=== PATIENT | male | born 1975 | race Caucasian/White ===

== ENCOUNTER 2016-05-25 20:10 | Emergency (ER) | payer MEDICAID ==
[~2016-05-25] VITALS: Ht 175.3 cm; Wt 95.0 kg
[~2016-05-25 20:10] MED LIST: APR50 PO
[2016-05-25 20:59] VITALS: Ht 175.3 cm; Wt 95.0 kg
[2016-05-25] MEDS ORDERED: ACETAMINOPHEN 500 MG TAB PO STA (22:55)
[2016-05-25 23:11] LABS: URINE BLOOD (Dip) POC 3+ (NEGATIVE)
[2016-05-25] MEDS ORDERED: CIPR500T4 PO (23:27)
[2016-05-25] MEDS ORDERED: PHEN-537 PO (23:27)
--- NOTE | 2016-05-26 01:55 | ERD ---
ER Documentation Chief Complaint Date/Time DATE: 05/26/16 TIME: 01:55 Chief Complaint Burning with urination and blood for 1 day HPI This is a 40 year old male presenting to ER for dysuria and hematuria x 1 day. No frequent or urgent urination. No difficulty urinating. No penile discharge or itching. No new sexual partners. No testicular or scrotal pain. No back or abdominal pain. No nausea or vomiting. Patient has not checked his temperature at home. ROS All systems reviewed and are negative except as per history of present illness. Medications Home Meds Active Scripts Phenazopyridine Hcl* (Pyridium*) 100 Mg Tab, 100 MG PO TID Y for URINARY PAIN, # 8 TAB Prov:CLEO CHAVEZ NP 05/25/16 Ciprofloxacin Hcl* (Ciprofloxacin Hcl*) 500 Mg Tablet, 500 MG PO BID for 3 Days , TAB Prov:CLEO CHAVEZ NP 05/25/16 Hydralazine Hcl* (Hydralazine Hcl*) 50 Mg Tab, 50 MG PO Q6, #120 TAB Prov:CHAPITO FERNANDEZ 01/28/16 Allergies Allergies: Coded Allergies: No Known Allergy (Unverified , 01/27/16) PMhx/Soc Medical and Surgical Hx: pt denies Medical Hx, pt denies Surgical Hx History of Surgery: No Anesthesia Reaction: No Hx Neurological Disorder: No Hx Respiratory Disorders: No Hx Cardiac Disorders: No Hx Psychiatric Problems: No Hx Miscellaneous Medical Probl: No Hx Alcohol Use: No Hx Substance Use: No Hx Tobacco Use: No Smoking Status: Never smoker Physical Exam Vitals Vital Signs Date Time Temp Pulse Resp B/P Pulse Ox O2 Delivery O2 Flow Rate FiO2 05/25/16 20:59 101.7 121 20 135/73 96 Physical Exam Const: no acute distress, alert Head: Atraumatic Eyes: Normal Conjunctiva ENT: Normal External Ears, Nose and Mouth. Neck: Full range of motion..~ No meningismus. Resp: Clear to auscultation bilaterally Cardio: Regular rate and rhythm, no murmurs Abd: Soft, non tender, non distended. Normal bowel sounds Skin: No petechiae or rashes Back: No midline or flank tenderness. no cva tenderness Ext: No cyanosis, or edema Neur: Awake and alert Psych: Normal Mood and Affect Results 24 hrs Laboratory Tests Test 05/25/16 23:13 Bedside Urine Blood 3+ Bedside Urine Glucose (UA) Negative Bedside Urine Ketones (LAB) Negative Bedside Urine Leukocyte Esterase (L 3+ Bedside Urine Nitrite (LAB) Negative Bedside Urine Protein (LAB) 1+ Bedside Urine pH (LAB) 5.5 Current Medications Medications (Trade) Dose Ordered Sig/Marie Route PRN Reason Start Time Stop Time Status Last Admin Dose Admin Acetaminophen (Tylenol Tab) 500 mg ONCE STAT PO 05/25/16 22:55 05/25/16 22:56 DC 05/25/16 23:21 Procedures/MDM ED COURSE: The patient was stable throughout ED course. I kept the patient and/or family informed of laboratory and diagnostic imaging results throughout the ED course. Tylenol given. Laboratory Urine dip shows 3+ blood and 3+ leukocyte esterase MDM: 40 year old male presents to ER for dysuria and hematuria x 1 day. Temp of 101.7F upon arrival to ED and Tylenol given. Fever reduced. Urine indicates UTI. Denies back pain. No CVA tenderness. Patient remains calm and comfortable throughout ED visit. Hemodynamically stable. Low suspicion for pyelonephritis. Patient's diagnosis is UTI. Patient is appropriate for outpatient management and will be discharged with Cipro and Pyridium. Instructed patient follow up with PCP in the next 2-3 days for reassessment. Return to ED for any new or worsening symptoms. Patient verbalizes understanding. All questions answered at discharge. Departure Diagnosis: Primary Impression: UTI (urinary tract infection) Urinary tract infection type: site unspecified Hematuria presence: with hematuria Qualified Code: N39.0 - Urinary tract infection with hematuria, site unspecified Condition: Stable Patient Instructions: Understanding Urinary Tract Infections (UTIs) [facility] Usted se lira hecho un examen mdico de control que le indica que no est en bharti condicin que requiera tratamiento urgente en el Departamento de Emergencia. Un estudio ms profundo y el tratamiento de ramirez condicin pueden esperar sin ningn riesgo hasta que usted sea atendida/o en el consultorio de ramirez mdico o bharti cl david. Es responsabilidad suya arreglar bharti sid para el seguimiento del blayne. MANEJO DE CONDICIONES NO URGENTES EN EL FUTURO 1) Si usted tiene un mdico de atencin primaria: Usted debera llamar a ramirez mdico de atencin primaria antes de venir al departamento de emergencia. Despus de las horas de consultorio, ramirez doctor o ramirez asociado/a est disponible por telfono. El mdico o enfermero de alee en el servicio telefnico puede asesorarle por boris medio para atender el problema, o blayne contrario se puede programar bharti sid. 2) Si usted no tiene un mdico de atencin primaria: Llame al mdico o clnica de referencia que aparece abajo frandy las horas de consultorio para hacer bharti sid para que le vean. CLINICAS: [facility] [phone] [facility] [phone] [facility] [phone] [facility] [phone] [address] [facility] [place] [id number] [phone] [facility] [phone] [address] [facility]. [facility] () Usted se lira hecho un examen mdico de control que le indica que no est en bharti condicin que requiera tratamiento urgente en el Departamento de Emergencia. Un estudio ms profundo y el tratamiento de ramirez condicin pueden esperar sin ningn riesgo hasta que usted sea atendida/o en el consultorio de ramirez mdico o bharti cl david. Es responsabilidad suya arreglar bharti sid para el seguimiento del blayne. MANEJO DE CONDICIONES NO URGENTES EN EL FUTURO 1) Si usted tiene un mdico de atencin primaria: Usted debera llamar a ramirez mdico de atencin primaria antes de venir al departamento de emergencia. Despus de las horas de consultorio, ramirez doctor o ramirez asociado/a est disponible por telfono. El mdico o enfermero de alee en el servicio telefnico puede asesorarle por boris medio para atender el problema, o blayne contrario se puede programar bharti sid. 2) Si usted no tiene un mdico de atencin primaria: Llame al mdico o condado institucions de referencia que aparece abajo frandy las horas de consultorio para hacer bharti sid para que le vean. SI USTED NO PUEDE PAGAR PARA JOE UN MEDICO puede ir a: [facility] [address] [place], [place] [id number] [place] [address] [address] [place], [place] [id number] [place] [address]+[facility] [address] [place] [address] PARA [facility] [address] [place] [phone] Additional Instructions: Call your primary care doctor TOMORROW for an appointment during the next 2-3 days.See the doctor sooner or return here if your condition worsens before your appointment time. Return to ED for any high fever, chest pain, difficulty breathing, shortness breath, wheezing, vomiting, diarrhea, abdominal pain or any new or worsening symptoms. CLEO CHAVEZ NP May 26, 2016 01:55
== END 2016-05-25 23:41 | disposition home or self-care (01) ==
LOC: FTE 20:10
DX: N39.0 Urinary tract infection, site not specified (principal)
CPT/HCPCS: 81003; Z7610; 99283

== ENCOUNTER 2016-11-04 02:14 | Emergency (ER) | END 2016-11-04 06:11 | disposition home or self-care (01) | DX: K80.50 Calculus of bile duct without cholangitis or cholecystitis without obstruction (principal); I10 Essential (primary) hypertension | CPT/HCPCS: 36415; 80053; 81003; 83690; 85025; 96361; 96374; 96375; J2270; J2405; J7030; Z7502; Z7610 ==

== ENCOUNTER 2018-02-09 22:16 | Emergency (ER) | END 2018-02-09 23:54 | disposition home or self-care (01) ==